=== PATIENT | male | born 1965 | race Caucasian/White ===

== ENCOUNTER 2018-02-04 12:00 | Emergency (ER) | payer OTHER ==
[~2018-02-04] VITALS: Ht 200.7 cm; Wt 108.5 kg
[~2018-02-04 12:00] MED LIST: ASPIR-LOW81 MG PO; ATIVAN0.5 MG PO; COUMADIN3 MG PO; DIGOX250 MCG PO; DILAUDID1 MG/ML IV; DILAUDID2 MG PO; FLORASTOR250 MG PO; HYDROCHLOROTHIA50 MG PO; INVANZ1 GM IM; INVANZ1 GM IV; LEVOTHYROXINE75 MCG PO; LO-DOSE ASPIRIN81 M1 PO; LOPRESSOR25 MG PO; LOVENOX40 MG/0.4 SC; METOCLOPRAMIDE10 MG PO; OMEPRAZOLE20 MG PO; ONDANSETRON4 MG/2 ML IV; PANTOPRAZOLE SO40 MG PO; PROBIOTIC1 EAC1 PO; PROTONIX IV40 MG IV; SODIUM CHLOR1L 0.9 IV; THORAZINE25 MG PO; VANCOCIN HCL125 MG PO; Vancocin Oral Solution PO; ZOFRAN ODT4 MG PO; ZOFRAN4 MG PO; ZOLOFT50 MG PO
[2018-02-04 12:48] LABS: HEMATOCRIT 45.9 % (38.0-50.0); HEMOGLOBIN 15.3 G/DL (12.5-16.6); MCH 30.4 PG (29.0-34.0); MCHC 33.3 G/DL (30.0-36.0); MCV 91.3 FL (86-99); PLATELET COUNT 199 K/uL (156-360); RBC DIS.WIDTH-CV 13.3 % (11.8-14.6); RBC DIS.WIDTH-SD 45.2 % (39-53); RED BLOOD COUNT 5.03 M/uL (4.00-5.50); WHITE BLOOD COUNT 10.6 K/uL (4.1-10.2)
[2018-02-04 12:55] LABS: ALBUMIN 4.6 g/dL (3.2-4.8); CHLORIDE 102 mEq/L (99-109); POTASSIUM 4.4 mEq/L (3.7-5.4); SODIUM 139 mEq/L (136-147)
[2018-02-04 12:57] LABS: GLUCOSE 91 mg/dL (70-99); TOTAL PROTEIN 7.9 g/dL (6.4-8.3)
[2018-02-04 12:59] LABS: TOTAL BILIRUBIN 1.2 mg/dL (0.0-1.0)
[2018-02-04 13:01] LABS: ALKALINE PHOSPHATASE 350 IU/L (3-129); GFR ESTIMATE (CALCULATED) > 59 mL/min/ (58.99-99999)
[2018-02-04 13:02] LABS: UREA NITROGEN (BUN) 16 mg/dL (9-23)
[2018-02-04 13:03] LABS: AST (GOT) 78 IU/L (2-34)
[2018-02-04 13:04] LABS: ALT (GPT) 184 IU/L (3-49)
[2018-02-04 14:14] LABS: PTT 34.3 SEC (25-37)
[2018-02-04 14:20] LABS: LIPASE 15 U/L (1.0-51.0)
[2018-02-04 14:26] LABS: TROP-I INTERPRETATION NEGATIVE; TROPONIN-I < 0.01 ng/mL (0.0-0.30)
[2018-02-04 15:02] LABS: APPEARANCE CLEAR ((CLEAR)); BILIRUBIN NEGATIVE; BLOOD NEGATIVE; COLOR YELLOW ((YELLOW)); GLUCOSE (STRIP) NEGATIVE; KETONES NEGATIVE; LEUKOCYTES NEGATIVE; NITRITE NEGATIVE; PROTEIN (STRIP) NEGATIVE; UCUL ADDED? NO; UROBILINOGEN 0.2 MG/DL (0.2-1.0)
[2018-02-04] MEDS ORDERED: NORCO 5/3251 TABLET PO (17:02)
[2018-02-04] MEDS ORDERED: CIPRO500 MG PO (17:02)
[2018-02-04] MEDS ORDERED: FLAGYL500 MG PO (17:02)
[2018-02-04 17:43] VITALS: BP 132/91
== END 2018-02-04 17:45 | disposition home or self-care (01) ==
LOC: EME 12:00
PROVIDERS: Nurse Practitioner Family
DX: K57.32 Diverticulitis of large intestine without perforation or abscess without bleeding (principal); R74.0 Nonspecific elevation of levels of transaminase and lactic acid dehydrogenase [LDH]; R07.89 Other chest pain; I10 Essential (primary) hypertension; E78.5 Hyperlipidemia, unspecified; K75.9 Inflammatory liver disease, unspecified; F41.9 Anxiety disorder, unspecified; Z88.4 Allergy status to anesthetic agent; Z88.1 Allergy status to other antibiotic agents
CPT/HCPCS: 74177; 80053; 81003; 83690; 84484; 85027; 85610; 85730; 87177; 87493; 87506; 93005; 99281; 99284; J7030